=== PATIENT | female | born 2000 | race Caucasian/White ===

== ENCOUNTER 2024-01-01 20:25 | Inpatient (IN) | payer MEDICAID, SELFPAY ==
[2024-01-01] VITALS (10 sets, daily range): BP systolic 116–133; BP diastolic 62–78; PULSE 50–163; RESP 16; TEMP 35.9–36.2; O2SAT 78–100; BMI 20.3
[2024-01-01] MEDS: Oxytocin 10 UNITS/ML Vial IM (20:55)
--- NOTE | 2024-01-01 20:58 | HP.PCM.OB_ITS ---
HPI - General General Date of Admission: 01/01/24 Date of Service: 01/01/24 Chief Complaint: Term Intrauterine in Labor HPI Narrative RACHEL CRUZ, is a 23 F G3, P1 Ab1 who presents at approximately 38+ weeks gestation and active labor. care has been unremarkable except the patient admits to using marijuana to control nausea and vapes with nicotine. She denies any issues with hypertension or diabetes. She has followed with [facility] in [place] but indicates that her plan has been to deliver in [place]. PFSH PFSH Allergy/AdvReac Type Severity Reaction Status Date / Time No Known Allergies Allergy Verified 01/01/24 21:03 ROS Constitutional Constitutional: Reports systems reviewed and no addt'l complaints, except as documented Vital Signs Vital Signs Vital Signs: Afebrile, vital signs stable 01/01/24 20:37 01/01/24 20:37 01/01/24 20:55 Pulse Rate 163 H Blood Pressure 133/62 H BP Systolic 133 BP Diastolic 62 Pulse Ox 78 01/01/24 20:55 Pulse Rate 71 Blood Pressure BP Systolic BP Diastolic Pulse Ox Physical Exam Const alert, oriented x3 and no apparent distress Constitutional Narrative: In late active Labor. Upon presentation to labor and delivery she was noted to be 7 cm dilated probably intact. Within approximately 10 minutes the patient progressed to complete and . General Appearance: cooperative Neck full ROM General: trachea midline Resp normal respiratory effort, no retractions and no use of accessory muscles Cardio regular rate and regular rhythm GI non-distended GI Narrative: Abdomen appropriate for gestational age. external exam normal Extremity no clubbing, cyanosis or edema Skin no rashes or lesions noted Neuro moves all extremities, no focal motor deficits and no sensory deficits noted Psych mental status grossly normal, affect normal, speech normal and activity/motor behavior normal Labs Labs Labs: No Data to Display Assessment & Plan (1) No care in current in third trimester: PLAN: Patient presented in late active labor and delivered within about 30 minutes without incident. Will check labs, drawl cord gases and cord blood. If we are able to obtain some records we may not need to process all labs. Plan was to start penicillin upon arrival but patient delivered precipitously before we were able to start penicillin.
--- NOTE | 2024-01-01 21:10 | EX.PCM.OBVAG ---
Maternal Data Information Gestational age: 38+ Vaginal Delivery Maternal Presentation Maternal Presentation: Active Labor Vaginal Delivery Information Procedure Performed: Spontaneous Vaginal Delivery Surgeon/Practitioner: Luis A Rose Date of Procedure: 01/01/24 Pre-Procedure Diagnosis: Term Intrauterine in Labor Post-Procedure Diagnosis: Term Intrauterine in Labor Type of anesthesia: None Estimated Blood Loss: 250 cc Findings Description of procedure: Spontaneous vaginal delivery of a viable male with Apgars of 8/9 from an occiput anterior presentation with clear amniotic fluid and normal three-vessel placenta. Cord around the neck x 2 tight. No episiotomy or laceration. Complications none. Delivery physician: Luis A Rose MD, FACOG. Presentation: Vertex Amniotic Membrane Rupture Type: Spontaneous Amniotic Fluid Description: Clear Placental Delivery Description: Spontaneous Placenta Disposition: [facility] Cord Vessel Description: 3 Vessels Cord Entanglement: Around neck x 2, tight Cord Gases: ABG and VBG Infant A Gender: Male (1 minute): 8 (5 minute): 9 Post Vaginal Deli Medications given after delivery: IM Pitocin Episiotomy Description: None Laceration: None Complication Complications: No
[2024-01-01 21:33] LABS: Absolute Lymphocyte Count 3.28 X10^3/uL (0.83-4.51); Absolute Neutrophil Count 12.7 X10^3/uL (2.0-7.7); Basophil% 0.6 % (0-1); Eosinophil# 0.15 X10^3/uL; Eosinophils% 0.9 % (0-5); Hematocrit 34.9 % (37-47); Hemoglobin 11.6 g/dL (12.0-15.0); Lymphocyte # 3.28 X10^3/ul (0.83-4.51); Lymphocyte % 18.7 % (19-41); Mean Corp Hgb Conc 33.2 g/dL (32-36); Mean Corpuscular Hgb 28.2 pg (27.0-32.0); Mean Corpuscular Volume 84.9 fL (81-99); Mean Platelet Vol. 10.6 fl (6.2-12.0); Monocyte# 1.14 X10^3/uL; Monocyte% 6.5 % (0-10); NRBC Flagged by Analyzer 0 % (0-5); Neutrophil # 12.68 X10^3/uL (2.7-7.7); Neutrophil % 72.1 % (47-70); Platelet Count 502 K/mm3 (150-450); RBC Distribution Width CV 11.8 % (11.6-14.6); RBC Distribution Width SD 35.9 fl (35.1-43.9); Red Blood Count 4.11 M/mm3 (4.2-5.4); White Blood Count 17.6 K/mm3 (4.4-11.0)
[2024-01-01 22:08] LABS: Rubella IgG Reactive (Nonreactive); Syphilis Antibodies Non-reactive
[2024-01-01 22:23] LABS: HIV - WCH Non-Reactive (Nonreactive); Syphilis Antibodies Non-reactive
[2024-01-01 22:33] LABS: Hepatitis B Surface Antigen Non-Reactive (Nonreactive); Hepatitis C Antibody Non-Reactive (Nonreactive)
[2024-01-01 23:03] LABS: Mucous, Urine 0 SEEN /hpf (<or=2+); Squamous Epithelial Cells - UA 0 SEEN /hpf (5-10)
[2024-01-01 23:10] LABS: Color, Urine Amber (Yellow); Glucose, Dipstick Normal (Normal); Ketone-Dipstick 15 mg/dl (Negative); Leukocyte Esterase-Dipstick 100 /ul (Negative); Nitrite-Dipstick Negative (Negative); Occult Blood-Urine 250 /ul (Negative); Protein-Dipstick 100 mg/dl (Negative); Specific Gravity, Urine 1.015 (1.002-1.030); Urine Bilirubin Dipstick Negative (Negative); Urine Clarity Cloudy (Clear); Urine Urobilinogen Normal (Normal)
[2024-01-01 23:17] LABS: Red Blood Cells-Urine > 100 SEEN /hpf (0-5); White Blood Cells 5-10 SEEN /hpf (0-5)
[2024-01-01 23:18] LABS: Bacteria RARE /hpf (None Seen)
[2024-01-01 23:28] LABS: Amphetamine Urine VISTA NEGATIVE (<1000 ng/mL); Barbiturate Urine VISTA NEGATIVE (< 200 ng/mL); Benzodiazepine Urine VISTA NEGATIVE (< 200 ng/mL); Cocaine Urine VISTA NEGATIVE (< 300 ng/mL); Ecstacy Urine VISTA NEGATIVE (< 500 ng/mL); Methadone Urine VISTA NEGATIVE (< 300 ng/mL); PCP Urine VISTA NEGATIVE (< 25 ng/mL); THC Urine VISTA POSITIVE (< 50 ng/mL); Vista UDS pH Range 8
[2024-01-02 01:15] VITALS: BP 114/78; PULSE 65; RESP 16; TEMP 36.4; O2SAT 100
[2024-01-02 05:07] VITALS: BP 131/85; PULSE 81; RESP 16; TEMP 37; O2SAT 97
[2024-01-02 08:20] VITALS: BP 117/75; PULSE 53; RESP 16; TEMP 36.4; O2SAT 97
--- NOTE | 2024-01-02 08:58 | PCM.PN.OB ---
Subjective Subjective Patient doing well without complaints. Tolerating PO. Ambulating and voiding without difficulty. Feeding well. Denies chest pain, shortness of breath, calf pain/swelling, fevers, chills, lightheadedness. Objective Data Objective Data Vital Signs: Vital Signs Temp Pulse Resp BP Pulse Ox O2 Del Method 97.5 F L 53 L 16 117/75 97 Room Air 01/02/24 08:20 01/02/24 08:20 01/02/24 08:20 01/02/24 08:20 01/02/24 08:20 01/02/24 08:20 Oxygen Delivery Method Room Air Weight: 118 lb 9.6 oz Body Mass Index (BMI) 20.3 Intake & Output: Intake and Output for Last 24 Hours 12/31/23 01/01/24 01/02/24 23:59 23:59 23:59 Output Total 600 / 600 150 / 150 Balance -600 / -600 -150 / -150 Lab / Micro Data 01/01/24 20:18 Labs: Laboratory Results - last 24 hr 01/01/24 20:18: WBC 17.6 H, RBC 4.11 L, Hgb 11.6 L, Hct 34.9 L, MCV 84.9, MCH 28.2, MCHC 33.2, RDW Std Deviation 35.9, RDW Coeff of Lore 11.8, Plt Count 502 H, MPV 10.6, Immature Gran % (Auto) 1.200 H, Neut % (Auto) 72.1 H, Lymph % (Auto) 18.7 L, Mcdowell % (Auto) 6.5, Eos % (Auto) 0.9, Baso % (Auto) 0.6, Absolute Neuts (auto) 12.7 H, Absolute Lymphs (auto) 3.28, Nucleated RBC % 0, Syphilis Total Ab Non-reactive 01/01/24 20:18: Syphilis Total Ab Non-reactive, Hep Bs Antigen Non-Reactive, Hepatitis C Antibody Non-Reactive, HIV 1&2 Antibody Non-Reactive, Rubella IgG Antibody Reactive, Blood Type O NEGATIVE, Antibody Screen NEGATIVE 01/01/24 22:45: Urine Color Anupama, Urine Clarity Cloudy, Urine pH 8.0, Ur Specific [place] 1.015, Urine Protein 100 H, Urine Glucose (UA) Normal, Urine Ketones 15 H, Urine Occult Blood 250 H, Urine Nitrite Negative, Urine Bilirubin Negative, Urine Urobilinogen Normal, Ur Leukocyte Esterase 100 H, Urine RBC > 100 SEEN, Urine WBC 5-10 SEEN, Ur Squamous Epith Cells 0 SEEN, Urine Bacteria RARE, Urine Mucus 0 SEEN, Urine Opiates Screen NEGATIVE, Urine Methadone Screen NEGATIVE, Ur Barbiturates Screen NEGATIVE, Ur Phencyclidine Scrn NEGATIVE, Ur Amphetamines Screen NEGATIVE, MDMA (Ecstasy) Screen NEGATIVE, U Benzodiazepines Scrn NEGATIVE, Urine Cocaine Screen NEGATIVE, U Cannabinoids Screen POSITIVE H, Ur Drug Screen Comment Micro: Microbiology 01/01/24 22:45 Urine, Clean Catch Chlamydia/Neisseria (PCR) - Final Physical Exam Const alert and oriented x3 Eyes PERRL Neck full ROM Lymph Lymphatic: no lymphadenopathy noted Chest inspection of chest normal and inspection of breasts normal Resp normal respiratory effort and normal air movement Effort and Inspection: able to speak in complete sentences Cardio regular rate and regular rhythm GI normal to inspection, nondistended, normoactive bowel sounds Uterus Palpation: uterus fundus firm Skin no rashes or lesions noted Psych mental status grossly normal Assessment & Plan (1) No care in current in third trimester: (2) (spontaneous vaginal delivery): COMMENT: PARADISE NPC boy PLAN: Plan s/p PPD # 1 1. routine post delivery care 2. breast feeding- support given. currently hand expressing. 3. rh positive 4. rubella immune 5. d/c home tomorrow.
[2024-01-02] MEDS: Famotidine 20 MG Tablet PO (09:55)
[2024-01-02 11:59] VITALS: BP 113/66; PULSE 52; RESP 16; TEMP 36.8; O2SAT 99
[2024-01-02 16:10] VITALS: BP 114/72; PULSE 64; RESP 18; TEMP 36.7; O2SAT 99
[2024-01-02 19:46] VITALS: BP 118/70; PULSE 66; RESP 17; TEMP 36.4; O2SAT 98
[2024-01-03 02:00] VITALS: BP 128/89; PULSE 108; RESP 16; TEMP 36.4; O2SAT 98
--- NOTE | 2024-01-03 07:48 | PN.OBGYN_ITS ---
Subjective Subjective Patient doing well without complaints. Tolerating PO. Ambulating and voiding without difficulty. Feeding well. Denies chest pain, shortness of breath, calf pain/swelling, fevers, chills, lightheadedness. Objective Data Objective Data Vital Signs: Vital Signs Temp Pulse Resp BP Pulse Ox O2 Del Method 97.6 F L 108 H 16 128/89 H 98 Room Air 01/03/24 02:00 01/03/24 02:00 01/03/24 02:00 01/03/24 02:00 01/03/24 02:00 01/03/24 02:00 Oxygen Delivery Method Room Air Weight: 118 lb 9.6 oz Body Mass Index (BMI) 20.3 Intake & Output: Intake and Output for Last 24 Hours 01/01/24 01/02/24 01/03/24 23:59 23:59 23:59 Output Total 600 / 600 150 / 150 Balance -600 / -600 -150 / -150 Lab / Micro Data 01/01/24 20:18 Micro: Microbiology 01/01/24 22:45 Urine, Clean Catch Chlamydia/Neisseria (PCR) - Final Physical Exam Const alert and oriented x3 General Appearance: cooperative Exam Limitations: no limitations HEENT normocephalic Eyes PERRL Neck full ROM Resp normal respiratory effort GI soft to palpation GI Narrative: FF below U Assessment & Plan (1) (spontaneous vaginal delivery): COMMENT: PARADISE NPC boy jamel (2) No care in current in third trimester: (3) Rh negative status during : QUALIFIERS: Trimester: unspecified trimester Qualified Code(s): O 26.899 - Other specified related conditions, unspecified trimester; Z67.91 - Unspecified blood type, Rh negative PLAN: Plan s/p PPD # 1. routine post delivery care 2. breast feeding- support given 3. rh negative-rhogam candidate 4. rubella immune 5. home today
[2024-01-03 10:45] VITALS: BP 121/77; PULSE 51; RESP 16; TEMP 36.4; O2SAT 98
[2024-01-03] MEDS: Famotidine 20 MG Tablet PO (10:56)
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
== END 2024-01-03 12:30 | disposition home or self-care (01) | DRG 560 ==
LOC: WPOUT 20:25 → WP 20:45
PROVIDERS: Admitting Provider Obstetrics & Gynecology; Referring Provider Obstetrics & Gynecology; Visit Provider Obstetrics & Gynecology
DX: O62.3 Precipitate labor (principal); Z37.0 Single live birth; F17.290 Nicotine dependence, other tobacco product, uncomplicated; O99.334 Smoking (tobacco) complicating childbirth; O69.1XX0 Labor and delivery complicated by cord around neck, with compression, not applicable or unspecified; O26.893 Other specified pregnancy related conditions, third trimester; Z67.91 Unspecified blood type, Rh negative; Z3A.38 38 weeks gestation of pregnancy
CPT/HCPCS: 59025; 59050; 80307; 81001; 85025; 86703; 86762; 86780; 86803; 86850; 86900; 86901; 87340; 87491; 87591; 99221; G0378